=== PATIENT | male | born 1975 | race African-American/Black ===

== ENCOUNTER 2016-02-10 12:17 | Emergency (ER) | payer MEDICAID ==
--- NOTE | 2016-02-10 13:49 | ED Physician Chart ---
Chief Complaint/HPI - Patient Information Date Seen:: 02/19/16 Time Seen:: 13:00 Chief Complaint:: rash on cheeks History of Present Illness:: Pt. req. antibiotic for bacterial infection, face, cheeks, etc.. Has had antibiotics in past. Possible early cellulitis, but possible folliculitis barbae. Pharynx nl. Pt. has hx of frontal sinus drainage as teen. No other surg. or med. problem. Allergies:: Allergies Allergy/AdvReac Type Severity Reaction Status Date / Time Penicillins Allergy Verified 01/29/16 06:33 Vitals:: Vital Signs - 8 hr 02/10/16 12:47 Temp 97.7 F HR 83 RR 16 BP 165/94 O2 Sat % 97 Review of Systems - Review of Systems General/Constitutional: No fever, No weight loss Skin: Skin lesions Head: No headache Eyes: No loss of vision ENT: No earache, No sore throat Neck: No neck pain Cardio Vascular: No palpitations Pulmonary: No SOB, No cough GI: No nausea G/U: No dysuria Musculoskeletal: No bone or joint pain Psychiatric: No prior psych history Hematopoietic: No bruising Allergic/Immuno: No urticaria Neurological: No syncope, No focal symptoms, No weakness Past Medical History - Past Medical History Past Medical History: No significant medical hx, Other (Previous similar rash. Folliculitis barbae.) Social History: Non Smoker, No Alcohol Surgical History: other (sinus surg) Psychiatricy History: None Medication: None Family Medical History - Family Member Mother History Unknown: Yes Ethnicity: Non- Physical Exam - Physical Examination General/Constitutional: Awake, Well-developed, well-nourished, Alert, No distress, GCS 15 Head: Atraumatic Eyes: Lids, conjuctiva normal, PERRL, EOMI Other Skin comments:: papular exanthem cheeks and chin, within kaiser. ENMT: External ears, nose nl, TM canals nl, Nasal exam nl, Lips, teeth, gums nl , Oropharynx nl Neck: Nontender Respiratory: Nl effort/Exclusion, Clear to Auscultation Cardio Vascular: RRR, No murmur, gallop, rubs GI: No tenderness/rebounding/guarding : No CVA tenderness Extremities: No tenderness or effusion, Full ROM, normal strength in all extremities ED Septic Shock - . Is Septic Shock (SBP<90, OR Lactate>4 mmol\L) present?: No - <6hrs of presentation: Vital Signs: Vital Signs - 8 hr 02/10/16 12:47 Temp 97.7 F HR 83 RR 16 BP 165/94 O2 Sat % 97 Reassessment (Disposition) - Reassessment Reassessment Condition:: Unchanged - Diagnosis Diagnosis:: Acute facial exanthem, cellulitis, possilble folliculitis barbae. - Aftercare/Follow up Instructions Aftercare/Follow-Up Instructions:: Refer to Discharge Instructions Notes:: Recommended not shaving. Pt. states he can clip kaiser. Medication Prescribed:: Rx: Augmentin 500/125 one po qid. Disp. #30. No refill. - Patient Disposition Discharge/Transfer:: Home Condition at Disposition:: Stable ED Discharge Plan - Patient Disposition Admit/Discharge/Transfer: PT DISCHARGED HOME
== END 2016-02-10 13:57 | disposition home or self-care (01) ==
LOC: ER 12:17
DX: L03.211 Cellulitis of face (principal); Z88.0 Allergy status to penicillin
CPT/HCPCS: Z7502

== ENCOUNTER 2016-02-13 16:45 | Emergency (ER) | payer MEDICAID ==
--- NOTE | 2016-02-13 16:55 | ED Physician Chart ---
Chief Complaint/HPI - Patient Information Date Seen:: 02/13/16 Time Seen:: 16:50 Chief Complaint:: urethral discharge History of Present Illness:: 40-year-old male with recurrent, moderate, persistent, urethral discharge 2 months. Has associated anxiety. Reviewed old records. Chlamydia and gonorrhea tests were negative from January 2016 Allergies:: Allergies Allergy/AdvReac Type Severity Reaction Status Date / Time Penicillins Allergy Verified 01/29/16 06:33 Historian:: Patient, Medical Records Review:: Nurse's Note Reviewed Review of Systems - Review of Systems Other: Complete system review otherwise unremarkable except as noted in HPI. Family Medical History - Family Member Mother History Unknown: Yes Ethnicity: Non- Physical Exam - Physical Examination Other:: INITIAL VITAL SIGNS: Reviewed by me GENERAL: Alert and interactive. No acute distress HEAD: Head is normocephalic and atraumatic EYES: EOMI. . No scleral icterus. No conjunctival injection ENT: Moist mucous membranes. NECK: Supple. No masses. Full range of motion RESPIRATORY: No tachypnea. Clear breath sounds bilaterally. No wheezing, rales, or rhonchi CV: Regular rate and rhythm. No murmurs, rubs, or gallops ABDOMEN: Soft, non-distended, non-tender. No guarding. No rebound. No masses. EXTREMITIES: No deformity. No cyanosis. No edema. SKIN: Warm and dry. No obvious rashes. NEUROLOGIC: Alert and oriented. Face is symmetric. Speech is normal. Moves all extremities equally. Motor and sensory distally intact. ED Septic Shock - . Is Septic Shock (SBP<90, OR Lactate>4 mmol\L) present?: No Reassessment (Disposition) - Reassessment Reassessment:: The patient's blood pressure was elevated (>120/80) but appears stable without evidence of hypertensive emergency or urgency. The patient was counseled about the risks hypertension urged to pursue outpatient monitoring and therapy within a week with her primary care physician. Patient is complaining of persistent urethritis. Patient was seen here in January and urine was tested. Chlamydia gonorrhea test was reviewed and it was negative. Discussed details with him. He says that he never filled his doxycycline prescription last time he was here. We have provided him with doxycycline 100 mg #28. I've advised him that his chlamydia and gonorrhea tests were negative. He should follow-up with urology. Also follow-up with PCP in one to 2 days. Gave return to ER precautions. Patient understands and agrees the plan. Reassessment Condition:: Improved - Diagnosis Diagnosis:: Urethritis Elevated blood pressure without the diagnosis of hypertension - Aftercare/Follow up Instructions Aftercare/Follow-Up Instructions:: Counseled pt regarding lab results/diagnosis & need follow up Medication Prescribed:: Doxycycline - Patient Disposition Discharge/Transfer:: Home Time:: 17:14 Condition at Disposition:: Improved ED Discharge Plan - Patient Disposition Admit/Discharge/Transfer: PT DISCHARGED HOME Condition at Disposition: Improved Instructions: Urethritis, Adult
== END 2016-02-13 17:37 | disposition home or self-care (01) ==
LOC: ER 16:45
DX: N34.2 Other urethritis (principal); R03.0 Elevated blood-pressure reading, without diagnosis of hypertension; Z88.0 Allergy status to penicillin
CPT/HCPCS: Z7502

== ENCOUNTER 2016-03-21 17:41 | Emergency (ER) | payer MEDICAID ==
--- NOTE | 2016-03-21 18:27 | ED Physician Chart ---
Chief Complaint/HPI - Patient Information Date Seen:: 03/21/16 Time Seen:: 18:00 Chief Complaint:: facial rash infection History of Present Illness:: this is a 41 yo male with concern about his recurrent facial infections and wants some antibiotics. Allergies:: Allergies Allergy/AdvReac Type Severity Reaction Status Date / Time No Known Allergies Allergy Verified 03/21/16 17:53 Vitals:: Vital Signs - 8 hr 03/21/16 03/21/16 17:41 18:08 Temp 97.0 F 97.0 F HR 95 95 RR 16 16 BP 125/99 125/99 O2 Sat % 99 99 Historian:: Patient Review:: Nurse's Note Reviewed Review of Systems - Review of Systems General/Constitutional: No fever, No chills, No weight loss, No weakness, No diaphoresis, No edema, No loss of appetite Skin: Skin lesions, Rash, No rash, No bruising Head: No headache, No light-headedness Eyes: No loss of vision, No pain, No diplopia ENT: No earache, No nasal drainage, No sore throat, No tinnitus Neck: No neck pain, No swelling, No thyromegaly, No stiffness, No mass noted Cardio Vascular: No chest pain, No palpitations, No PND, No orthopnea, No edema Pulmonary: No SOB, No cough, No sputum, No wheezing GI: No nausea, No vomiting, No diarrhea, No pain, No melena, No hematochezia, No constipation, No hematemesis G/U: No dysuria, No frequency, No hematuria Musculoskeletal: No bone or joint pain, No back pain, No muscle pain Endocrine: No polyuria, No polydipsia Psychiatric: No prior psych history, No depression, No anxiety, No suicidal ideation Hematopoietic: No bruising, No lymphadenopathy Allergic/Immuno: No urticaria, No angioedema Neurological: No syncope, No focal symptoms, No weakness, No paresthesia, No headache, No seizure, No dizziness, No confusion, No vertigo Past Medical History - Past Medical History Obtainable: Yes Past Medical History: No significant medical hx Family History: None Social History: Non Smoker, No Alcohol, No Drug Use Surgical History: None Psychiatricy History: None Medication: Reviewed Family Medical History - Family Member Mother History Unknown: Yes Ethnicity: Non- Hx Family Diabetes: Yes Physical Exam - Physical Examination General/Constitutional: Awake, Well-developed, well-nourished, Alert, No distress, GCS 15, Non-toxic appearing, Ambulatory Head: Atraumatic Eyes: Lids, conjuctiva normal, PERRL, EOMI Skin: Nl inspection, No rash, No skin lesions, No ecchymosis, Well hydrated, No lymphadenopathy ENMT: External ears, nose nl, Nasal exam nl, Lips, teeth, gums nl Neck: Nontender, Full ROM w/o pain, No JVD, No nuchal rigidity, No bruit, No mass, No stridor Respiratory: Nl effort/Exclusion, Clear to Auscultation, No Wheeze/Rhonchi/Rales Cardio Vascular: RRR, No murmur, gallop, rubs, NL S1 S2 GI: No tenderness/rebounding/guarding, No organomegaly, No hernia, Normal BS's, Nondistended, No mass/bruits, No McBurney tenderness : No CVA tenderness Extremities: No tenderness or effusion, Full ROM, normal strength in all extremities, No edema, Normal digits & nails Neuro/Psych: Alert/oriented, DTR's symmetric, Normal sensory exam, Normal motor strength, Judgement/insight normal, Mood normal, Normal gait, No focal deficits Misc: normal gait, Normal back, No paraspinal tenderness ED Septic Shock - . Is Septic Shock (SBP<90, OR Lactate>4 mmol\L) present?: No - <6hrs of presentation: Vital Signs: Vital Signs - 8 hr 03/21/16 03/21/16 17:41 18:08 Temp 97.0 F 97.0 F HR 95 95 RR 16 16 BP 125/99 125/99 O2 Sat % 99 99 Reassessment (Disposition) - Reassessment Reassessment Condition:: Unchanged - Diagnosis Diagnosis:: skin rash - Aftercare/Follow up Instructions Aftercare/Follow-Up Instructions:: Counseled pt regarding lab results/diagnosis & need follow up, Refer to Discharge Instructions, Counseled pt & family regarding lab results/diagnosis & need follow up - Patient Disposition Discharge/Transfer:: Home ED Discharge Plan - Patient Disposition Prescriptions: Azithromycin [Zithromax Tri-Pantera] 500 mg PO DAILY #0 tablet Instructions: Folliculitis Accepting Physician: , Primary [Other]
== END 2016-03-21 18:05 | disposition home or self-care (01) ==
LOC: ER 17:41
DX: R21 Rash and other nonspecific skin eruption (principal)
CPT/HCPCS: Z7502

== ENCOUNTER 2016-03-26 09:06 | Emergency (ER) | payer MEDICAID ==
--- NOTE | 2016-03-26 10:26 | ED Physician Chart ---
Skin/Abscess/FB HPI - General Chief complaint: Skin Rash/Abscess Stated complaint: - Source: patient, RN notes reviewed Mode of arrival: ambulatory Limitations: no limitations - History of Present Illness MD complaint: rash Onset (ago): month(s) Tetanus Up to Date: unsure Location: face Severity: mild Severity scale (1-10): 2 Consistency: intermittent Improves with: medication, other (cl) Worsens with: none Associated symptoms: denies other symptoms Treatments prior to arrival: antibiotic, other - Related Data Previous Rx's Medication Instructions Recorded Penicillin V Potassium [Penicillin 500 mg PO QID #0 tab 03/26/16 VK] Allergies Allergy/AdvReac Type Severity Reaction Status Date / Time No Known Allergies Allergy Verified 03/26/16 09:21 Review of Systems Review of Systems: no diabetes or immunosuppression by hx. all other systems reviewed were negative per pt. has gained 15 # secondary to 'poor diet' of processed oatmeal, lack of exercise. All systems ED: Reviewed and Negative Except as Stated Constitutional: Reports: No Symptoms Reported Eyes: Reports: As Per HPI ENT ED: Reports: As Per HPI Cardiovascular: Reports: As Per HPI Respiratory: Reports: No Symptoms Reported Genitourinary: Reports: As Per HPI Musculoskeletal: Reports: As Per HPI Integumentary: Reports: Rash Neurological: Reports: As Per HPI Psychiatric: Reports: As Per HPI Hematological/Lymphatic: Reports: As Per HPI Allergic/Immunologic: Reports: As per HPI (not itchy, not painful) Family Medical History - Family Member Mother History Unknown: Yes (no pertinent hx) Ethnicity: Non- Hx Family Diabetes: No Physical Exam healthy appearing, well kempt, adult AA male in NAD. Skin; has hyperpigmented lesions inner lip mucosa, old skin pigment changes periorally. pt insists lesions were scaly, crusted, recurrent and "he just washed them is why they look so good" prior to presentation. no ulcers or malignant features to skin changes. tongue sl coated, moist. all other skin nl in appearance. palms nl. eyes clear. no evidence diabetic nigrans changes. no unusual breath odors. speech nonlabored. hair pattern normal. no tremor. A/Ox4. thoughts well ordered and cogent. ambulates normally with nl proprioception and strength, no limp. VSS. - General Limitations: no limitations General appearance: alert, in no apparent distress, anxious - Head Head exam: normal inspection - Eye Eye exam: Present: normal appearance, PERRL, EOMI. Absent: scleral icterus - ENT ENT exam: other (few hyperpigmented lesions on inner lower lip) - Expanded ENT Exam Teeth exam: Present: normal inspection Throat exam: Present: normal inspection - Neck Neck exam: Present: normal inspection. Absent: lymphadenopathy, thyromegaly - Respiratory Respiratory exam: Absent: respiratory distress, accessory muscle use - Cardiovascular Cardiovascular exam: Present: regular rate - Extremities Exam Extremities exam: Present: normal inspection - Expanded Upper Extremity Exam Hand exam: Present: normal inspection - Neurological Exam Neurological exam: Present: alert, oriented X3, CN II-XII intact, normal gait, reflexes normal - Expanded Neurological Exam Patient oriented to: Present: person, place, time Speech: Present: fluid speech (ambulates normally) - Psychiatric Psychiatric exam: Present: normal affect, anxious. Absent: flat affect (not anxious per se but 'worried' about skin changes), manic, suicidal ideation - Expanded Psychiatric Exam Expanded psych exam: Absent: poor eye contact, pressured speech, delusional, perseverating, flight of ideas, loose associations, uncooperative, refuses to answer - Skin Skin exam: Present: warm, dry, intact, rash (dry, rare scale, no ulceration), other (hyperpigmented lesions, look chronic?) - Expanded Skin Exam Distribution: face, other (buccal mucosa) Description: Present: other (flat, scale, dark, chronic appearance, no pustules) . Absent: urticarial, crusting, discharge, fluctuant, indurated Course Course Narrative: >15 minutes spent counselling pt about underlying stress, diet, lifestyle, potential underlying allergic exposures and other possible etiologies for skin changes that predispose pt to recurrent and /or persistent skin inflammation/ infection. pt insists on 'penicillin script', and expresses desire to have ' full evaluation and hospital admission for IV antibx ' at some point. seems lucid, not mentally unstable or delusional but rather focused on antibx as ' solution'. was very receptive of my information and engaged in conversation. Vital Signs Temp 98.0 F 03/26/16 09:21 HR 76 03/26/16 09:21 RR 18 03/26/16 09:21 BP 132/78 03/26/16 09:21 O2 Sat % 98 03/26/16 09:21 Temp 98.0 F 03/26/16 09:43 HR 76 03/26/16 09:43 RR 18 03/26/16 09:43 BP 132/78 03/26/16 09:43 O2 Sat % 98 03/26/16 09:43 Skin/Abscess/Foreign Body - Differential Diagnosis abscess of skin or subcutaneous tissue, dermatophytosis, urticaria, cellulitis, eczema, impetigo, contact dermatitis - Medical Records Medical records reviewed: Yes I reviewed the patient's medical records. (old record says PCN allergy but pt denies this today.) Critical Care Time Critical Care Time: No Disposition Clinical Impression: Disposition: PT DISCHARGED HOME Condition: Stable Instructions: [place] Prescriptions: Penicillin V Potassium [Penicillin VK] 500 mg PO QID #0 tab Referrals: Jarad Ch [Active] - 1-3 Days ED Discharge Plan - Patient Disposition Admit/Discharge/Transfer: PT DISCHARGED HOME Condition at Disposition: Stable Prescriptions: Penicillin V Potassium [Penicillin VK] 500 mg PO QID #0 tab Instructions: [place] Accepting Physician: Jarad Ch [Active] - 1-3 Days
== END 2016-03-26 09:50 | disposition home or self-care (01) ==
LOC: ER 09:06
DX: R21 Rash and other nonspecific skin eruption (principal)
CPT/HCPCS: Z7502

== ENCOUNTER 2016-06-05 19:29 | Emergency (ER) | payer MEDICAID ==
--- NOTE | 2016-06-05 20:16 | ED Physician Chart ---
Chief Complaint/HPI - Patient Information Date Seen:: 06/05/16 Time Seen:: 19:50 Chief Complaint:: Pt wants to have a prescription for antibiotic. History of Present Illness:: Pt demands to have a prescription for an antibiotic because he thinks that he needs it. Pt initially refused to be triaged by nursing staff. Pt is alert and oriented x 3, ambulates steadily and swiftly without assistance without difficulty. Pt breathes comfortably and speaks clearly. Pt refuses to give history and to have physical examination. Pt then becomes belligerent and just walks out. Pt elopes without completion of this ER visit. Allergies:: Allergies Allergy/AdvReac Type Severity Reaction Status Date / Time No Known Allergies Allergy Verified 03/26/16 09:21 Family Medical History - Family Member Mother History Unknown: Yes (no pertinent hx) Ethnicity: Non- Hx Family Diabetes: No ED Septic Shock - . Is Septic Shock (SBP<90, OR Lactate>4 mmol\L) present?: No Reassessment (Disposition) - Patient Disposition Discharge/Transfer:: [place] Time:: 20:05 Condition at Disposition:: Stable
== END 2016-06-05 20:05 | disposition left against medical advice (07) ==
LOC: ER 19:29
DX: Z76.0 Encounter for issue of repeat prescription (principal)
CPT/HCPCS: Z7502